=== PATIENT | female | born 1950 | race Caucasian/White ===

== ENCOUNTER 2018-09-06 13:13 | Inpatient (IN) | payer MEDICARE ==
[~2018-09-06] VITALS: Ht 167.6 cm; Wt 103.4 kg
[2018-09-06] MEDS ORDERED: CEphaleXIN 500 MG CAPSULE PO ONE (13:30)
[2018-09-06] MEDS ORDERED: CEphaleXIN 500 MG CAPSULE ONE (13:33)
[2018-09-06] MEDS ORDERED: ATOR20TA PO (13:40)
[2018-09-06] MEDS ORDERED: AMLO10TA7 PO (13:40)
[2018-09-06] MEDS ORDERED: LOSA100T31 PO (13:40)
[2018-09-06] MEDS ORDERED: BLOO-140 IN (13:40)
[2018-09-06] MEDS ORDERED: INSU100V7 SQ (13:40)
[2018-09-06] MEDS ORDERED: ALLO300T2 PO (13:40)
[2018-09-06] MEDS ORDERED: INSU100C SQ (13:40)
[2018-09-06] MEDS ORDERED: METO-358 PO (13:40)
[2018-09-06 13:45] LABS: BASOPHILS % (AUTO) 0.4 % (0.0-2.0); EOSINOPHILS # (AUTO) 0.3 K/uL (0.0-0.7); EOSINOPHILS % (AUTO) 2.9 % (0.0-7.0); HEMATOCRIT 42.8 % (31.2-41.9); HEMOGLOBIN 14.7 g/dL (10.9-14.3); LYMPHOCYTES # (AUTO) 2.5 K/uL (20.0-40.0); LYMPHOCYTES % (AUTO) 27.1 % (20.5-51.5); MEAN CORPUSCULAR HEMOGLOBIN 29.1 uug (24.7-32.8); MEAN CORPUSCULAR HGB CONC 34 g/dL (32.3-35.6); MEAN CORPUSCULAR VOLUME 84.8 fL (75.5-95.3); MONOCYTES # (AUTO) 0.6 K/uL (2.0-10.0); MONOCYTES % (AUTO) 6.8 % (0.0-11.0); NEUTROPHILS # (AUTO) 5.7 K/uL (1.8-8.9); NEUTROPHILS % (AUTO) 62.8 % (38.5-71.5); PLATELET COUNT (AUTO) 264 K/uL (179-408); RED BLOOD CELL COUNT(AUTO) 5.05 MIL/uL (3.63-4.92); WHITE BLOOD COUNT (AUTO) 9.1 K/uL (3.8-11.8)
[2018-09-06 13:50] LABS: CREATININE 0.6 mg/dL (0.6-1.3); POTASSIUM 3.3 mmol/L (3.5-5.1)
--- NOTE | 2018-09-06 14:10 | NUR ---
PT MEDICALLY CLEARED. MHU BED PENDING, SUGAR PLANTATION MANAGER AND MHU TEA ROOM MANAGER AWARE.
[2018-09-06] MEDS ORDERED: INSULIN REGULAR, HUMAN 300 UNIT/3 ML VIAL ONE (14:13)
[2018-09-06] MEDS ORDERED: POTASSIUM CHLORIDE 20 MEQ TAB.PRT.SR ONE (14:13)
[2018-09-06] MEDS ORDERED: POTASSIUM CHLORIDE 20 MEQ TAB.PRT.SR PO ONE (14:15)
[2018-09-06] MEDS ORDERED: INSULIN REGULAR, HUMAN 300 UNIT/3 ML VIAL SQ ONE (14:15)
--- NOTE | 2018-09-06 16:20 | NUR ---
PT TRANSFERED TO MHU IN STABLE CONDITION, PT REMAINED CALM AND COMFORTABLE THE WHOLE ER STAY. AT BEDSIDE THE WHOLE ER STAY.
[2018-09-06] MEDS ORDERED: ACETAMINOPHEN 325 MG TABLET PO PRN (17:00)
[2018-09-06] MEDS ORDERED: TEMAZEPAM 7.5 MG CAPSULE PO PRN (17:00)
[2018-09-06] MEDS ORDERED: MAGNESIUM HYDROXIDE 30 ML LIQUID UDC PO PRN (17:00)
[2018-09-06] MEDS ORDERED: MAG HYDROX/AL HYDROX/SIMETH 30 ML LIQUID UDC PO PRN (17:00)
[2018-09-06] MEDS ORDERED: CLONAZEPAM 0.5 MG TABLET PO PRN (17:00)
[2018-09-06] MEDS ORDERED: PNEUMOCOCCAL 23-VAL P-SAC VAC 0.5 ML VIAL IM ONE (17:45)
--- NOTE | 2018-09-06 18:44 | NUR ---
GPS: RECEIVED PATIENT FROM ER, ADMITTING TO [facility] UNIT UNDER THE SERVICE OF DR. DIAZ PATIENT IS ADMITTED ON 5150 GD DUE TO HALLUCINATION , REFUSING TO ALLOW TO PICK HER UP OFF THE BEDROOM FLOOR FOR SEVERAL DAYS, REFUSE TO EAT , REFUSING HER MEDICATION, AND WAS FOUND COVERED WITH HER FECES , PATIENT WAS ACCOMPANIED BY , PATIENT MALODOROUS AND UNKEMPT , ALERT ORIENTED X1, RECEIVED INSULIN FROM ER, PATIENT ASSESMENT HAS PERIANAL AND PERINEAL INFECTION, SKIN HAS SOME DISCOLORATION, AND TOENAILS DARKENED PATIENT COMFORTABLY ASSISTED TO HER ROOM, ORIENTED TO UNIT POLICY, THERE WERE NO VALUABLES UPON ADMISSION, PATIENT RECEIVED HER PATIENT HANDBOOK UPON ADMISSION, BP 138/70, T98.2R18 0/10 PAIN SCALE, 99% ROOM AIR, CALLED AND SPOKE WITH DR. DIAZ , WITH ORDERS MADE AND CARRIED OUT, ALL NEEDS MET AT THIS TIME WILL CONTINUE MONITOR
[2018-09-06] MEDS ORDERED: DEXTROSE 50% 50 ML DISP.SYRIN IV PRN (20:00)
[2018-09-06 20:22] VITALS: BP 135/85
[2018-09-06] MEDS: LOSARTAN POTASSIUM 50 MG TABLET PO SCH (20:44)
[2018-09-06] MEDS: CEphaleXIN 500 MG CAPSULE PO SCH (20:44)
[2018-09-06] MEDS: ATORVASTATIN 20 MG TABLET PO SCH (20:44)
[2018-09-06] MEDS: INSULIN REGULAR, HUMAN 300 UNIT/3 ML VIAL SQ PRN (21:00)
[2018-09-06] MEDS: BLOOD SUGAR DIAGNOSTIC 1 EACH STRIP VI SCH (21:28)
[2018-09-06] MEDS: INSULIN GLARGINE,HUM 300 UNITS/3 ML CARTRIDGE SQ SCH (21:32)
--- NOTE | 2018-09-07 04:06 | NUR ---
received patient in bed upon initial rounds. patient lethargic but easily arousable. compliant with meds. took meds without difficulty. Accuck @ 2100 was 272. 6 units of humulog R given as coverage. no acute distress noted. Lantus insulin given as ordered. patient compliant with meds. VSS.Incontinent of urine. kept clean and dry. fall precautions maintained.
[2018-09-07] MEDS: BLOOD SUGAR DIAGNOSTIC 1 EACH STRIP VI SCH ×4 (06:32→21:04)
[2018-09-07 07:30] VITALS: BP 131/91
[2018-09-07] MEDS: CEphaleXIN 500 MG CAPSULE PO SCH ×2 (08:14→16:23)
[2018-09-07] MEDS: METOPROLOL SUCCINATE XL 50 MG TAB.SR.24H PO SCH (08:15)
[2018-09-07] MEDS: LOSARTAN POTASSIUM 50 MG TABLET PO SCH (08:16)
[2018-09-07] MEDS: AMLODIPINE 10 MG TABLET PO SCH (08:16)
[2018-09-07] MEDS: ALLOPURINOL 300 MG TABLET PO SCH (08:19)
[2018-09-07] MEDS: INSULIN REGULAR, HUMAN 300 UNIT/3 ML VIAL SQ PRN ×3 (12:23→21:10)
[2018-09-07] MEDS ORDERED: Z GUARD REMEDY PASTE 57 GM TUBE TOP PRN (13:15)
--- NOTE | 2018-09-07 13:18 | NUR ---
WOUND CARE CONSULT: PT PRESENTS WITH INCONTINENCE AND RED RASH TO PERINEUM, BUTTOCKS AND ABDOMINAL FOLDS, PRESENT ON ADMISSION. SLIGHT REDNESS TO LOWER LEGS NOTED. RECOMMENDATIONS MADE FOR SKIN PROTECTION AND CARE. DISCUSSED WITH NURSING STAFF. WILL SEE PRN. MAGAÑA IN AGREEMENT WITH PLAN OF CARE. Addendum: 09/07/18 at 1319 by DENILSON MEYERS RN Amended: Links added.
[2018-09-07 16:00] VITALS: BP 159/91
[2018-09-07] MEDS: CLOTRIMAZOLE 1% CREAM 30 GM TUBE TOP SCH (16:23)
--- NOTE | 2018-09-07 18:19 | NUR ---
GPS:RECEIVED PATIENT ALERT ORIENTED X2, PATIENT COMPLIANT WITH MEDICATION DENIES SUICIDAL AND HOMICIDAL IDEATION, PATIENT HAD GOOD APPETITE, PATIENT CONFUSED, NEEDS REDIRECTION, DENIES PAIN WITH 0/10 PAIN SCALE, PATIENT KEPT CLEAN AND DRY, INSULIN GIVEN PER SLIDING SCALE, WILL CONTINUE MONITOR
[2018-09-07 20:00] VITALS: BP 157/92
[2018-09-07] MEDS: ATORVASTATIN 20 MG TABLET PO SCH (20:44)
[2018-09-07] MEDS: risperiDONE 0.25 MG TABLET PO SCH (20:45)
[2018-09-07] MEDS: INSULIN GLARGINE,HUM 300 UNITS/3 ML CARTRIDGE SQ SCH (21:07)
[2018-09-07] MEDS: Z GUARD REMEDY PASTE 57 GM TUBE TOP SCH (21:20)
[2018-09-08] MEDS: BLOOD SUGAR DIAGNOSTIC 1 EACH STRIP VI SCH ×4 (06:45→21:06)
[2018-09-08 07:30] VITALS: BP 213/111
[2018-09-08] MEDS: LOSARTAN POTASSIUM 50 MG TABLET PO SCH (08:14)
[2018-09-08] MEDS: METOPROLOL SUCCINATE XL 50 MG TAB.SR.24H PO SCH (08:15)
[2018-09-08] MEDS: AMLODIPINE 10 MG TABLET PO SCH (08:16)
[2018-09-08] MEDS: ALLOPURINOL 300 MG TABLET PO SCH (08:59)
[2018-09-08] MEDS: CEphaleXIN 500 MG CAPSULE PO SCH ×2 (08:59→16:45)
[2018-09-08] MEDS: CLOTRIMAZOLE 1% CREAM 30 GM TUBE TOP SCH ×2 (09:00→17:14)
[2018-09-08] MEDS: Z GUARD REMEDY PASTE 57 GM TUBE TOP SCH ×2 (09:00→20:48)
[2018-09-08] MEDS: INSULIN REGULAR, HUMAN 300 UNIT/3 ML VIAL SQ PRN ×4 (10:30→21:09)
[2018-09-08] MEDS: HYDROCHLOROTHIAZIDE 25 MG TABLET PO SCH (13:31)
[2018-09-08 16:00] VITALS: BP 129/68
[2018-09-08 20:00] VITALS: BP 174/94
[2018-09-08] MEDS: risperiDONE 0.25 MG TABLET PO SCH ×3 (20:46→21:00)
[2018-09-08] MEDS: ATORVASTATIN 20 MG TABLET PO SCH ×3 (20:46→21:00)
[2018-09-08] MEDS: INSULIN GLARGINE,HUM 300 UNITS/3 ML CARTRIDGE SQ SCH (21:11)
[2018-09-09] MEDS: BLOOD SUGAR DIAGNOSTIC 1 EACH STRIP VI SCH ×4 (05:54→20:04)
--- NOTE | 2018-09-09 06:11 | NUR ---
pt. slept for 6 hrs. hs care done lotrimin cream & z-guard cream applied to perianal area & groin. am care done . z-guard cream applied to perianal area.had emesis of yellowish in color approximately 50cc., stated she feels better after the emesis. checked blood sugar by accucheck bs-[id number]. not in any distress.
[2018-09-09] MEDS: INSULIN REGULAR, HUMAN 300 UNIT/3 ML VIAL SQ PRN ×3 (07:50→20:09)
[2018-09-09 08:00] VITALS: BP 117/48
[2018-09-09] MEDS: LOSARTAN POTASSIUM 50 MG TABLET PO SCH (08:56)
[2018-09-09] MEDS: METOPROLOL SUCCINATE XL 50 MG TAB.SR.24H PO SCH (08:57)
[2018-09-09] MEDS: CEphaleXIN 500 MG CAPSULE PO SCH ×2 (08:57→17:16)
[2018-09-09] MEDS: ALLOPURINOL 300 MG TABLET PO SCH (08:57)
[2018-09-09] MEDS: HYDROCHLOROTHIAZIDE 25 MG TABLET PO SCH (08:57)
[2018-09-09] MEDS: AMLODIPINE 10 MG TABLET PO SCH (08:58)
[2018-09-09] MEDS: CLOTRIMAZOLE 1% CREAM 30 GM TUBE TOP SCH ×2 (08:58→16:36)
[2018-09-09] MEDS: risperiDONE 0.25 MG TABLET PO SCH ×2 (08:58→20:05)
[2018-09-09] MEDS: Z GUARD REMEDY PASTE 57 GM TUBE TOP SCH ×2 (08:59→20:05)
--- NOTE | 2018-09-09 13:00 | NUR ---
Initial Discharge Plan: Patient is a 67 year old female who currently resides at home [[address] [place] [id number]] with her , Db Curtis [[phone]]. Per Db, he would like patient to go to a retirement facility for short-term placement. structural steel worker helper agreeable with placement and will assist patient and Db in finding appropriate placement. structural steel worker helper will continue to collaborate with patient, patient , and MD on a safe and proper discharge.
--- NOTE | 2018-09-09 15:45 | NUR ---
Gps/Lead Software Tester- Incontinent of large amount of urine, good augustin care was rendered, lotrimin cream applied to abdominal fold redness, z-guard to sacrococcygeal area, repositioned , pressure relief, per Wound care Nurse she had already seen skin issues .Continue with skin care regimen as ordered.
[2018-09-09 16:00] VITALS: BP 174/100
[2018-09-09] MEDS: ONDANSETRON HCL 4 MG TABLET PO PRN (17:16)
[2018-09-09] MEDS: ATORVASTATIN 20 MG TABLET PO SCH (20:04)
[2018-09-09] MEDS: INSULIN GLARGINE,HUM 300 UNITS/3 ML CARTRIDGE SQ SCH (20:10)
[2018-09-09 20:47] VITALS: BP 163/83
[2018-09-10] MEDS: BLOOD SUGAR DIAGNOSTIC 1 EACH STRIP VI SCH ×4 (06:41→20:07)
[2018-09-10 07:30] VITALS: BP 145/90
[2018-09-10] MEDS: LOSARTAN POTASSIUM 50 MG TABLET PO SCH (08:29)
[2018-09-10] MEDS: AMLODIPINE 10 MG TABLET PO SCH (08:29)
[2018-09-10] MEDS: risperiDONE 0.25 MG TABLET PO SCH ×2 (08:29→20:07)
[2018-09-10] MEDS: ALLOPURINOL 300 MG TABLET PO SCH (08:30)
[2018-09-10] MEDS: METOPROLOL SUCCINATE XL 50 MG TAB.SR.24H PO SCH (08:30)
[2018-09-10] MEDS: CEphaleXIN 500 MG CAPSULE PO SCH ×2 (08:30→16:54)
[2018-09-10] MEDS: CLOTRIMAZOLE 1% CREAM 30 GM TUBE TOP SCH ×2 (08:31→16:55)
[2018-09-10] MEDS: HYDROCHLOROTHIAZIDE 25 MG TABLET PO SCH (08:31)
[2018-09-10] MEDS: Z GUARD REMEDY PASTE 57 GM TUBE TOP SCH ×2 (08:31→20:07)
[2018-09-10] MEDS: INSULIN REGULAR, HUMAN 300 UNIT/3 ML VIAL SQ PRN (12:03)
[2018-09-10 15:35] VITALS: BP 111/73
--- NOTE | 2018-09-10 17:00 | NUR ---
Gps/Hat Binder- in to visit, informations provided regarding pt. progress. Remains in bed most of the morning, repositioned at a regular intervals, bladder incontinence, good augustin-care rendered, cream applied to affected areas .Needed assist with her meals, no initiating to feed self.
[2018-09-10 19:55] VITALS: BP 106/35
[2018-09-10] MEDS: INSULIN GLARGINE,HUM 300 UNITS/3 ML CARTRIDGE SQ SCH (20:01)
[2018-09-10] MEDS: ATORVASTATIN 20 MG TABLET PO SCH (20:07)
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
[2018-09-11] MEDS: BLOOD SUGAR DIAGNOSTIC 1 EACH STRIP VI SCH ×4 (06:46→20:13)
[2018-09-11 07:30] VITALS: BP 121/73
[2018-09-11] MEDS: CEphaleXIN 500 MG CAPSULE PO SCH ×2 (08:41→17:13)
[2018-09-11] MEDS: risperiDONE 0.25 MG TABLET PO SCH ×2 (08:41→20:05)
[2018-09-11] MEDS: METOPROLOL SUCCINATE XL 50 MG TAB.SR.24H PO SCH (08:42)
[2018-09-11] MEDS: ALLOPURINOL 300 MG TABLET PO SCH (08:42)
[2018-09-11] MEDS: HYDROCHLOROTHIAZIDE 25 MG TABLET PO SCH (08:43)
[2018-09-11] MEDS: AMLODIPINE 10 MG TABLET PO SCH (08:43)
[2018-09-11] MEDS: LOSARTAN POTASSIUM 50 MG TABLET PO SCH (08:43)
[2018-09-11] MEDS: Z GUARD REMEDY PASTE 57 GM TUBE TOP SCH ×2 (08:44→20:13)
[2018-09-11] MEDS: CLOTRIMAZOLE 1% CREAM 30 GM TUBE TOP SCH ×2 (08:45→17:13)
--- NOTE | 2018-09-11 09:39 | NUR ---
Gps/Manager Mass- Assisted with her breakfast, was fed, ate fairly well, adequate fluid intake,. Patient not initiating to feed self, needed encouragement and prompting. Routine am meds. was administered crushed with apple sauce, pt.was spitting out meds .
[2018-09-11] MEDS: INSULIN REGULAR, HUMAN 300 UNIT/3 ML VIAL SQ PRN ×3 (12:23→20:12)
[2018-09-11 16:00] VITALS: BP 107/71
[2018-09-11] MEDS: ATORVASTATIN 20 MG TABLET PO SCH (20:05)
[2018-09-11] MEDS: INSULIN GLARGINE,HUM 300 UNITS/3 ML CARTRIDGE SQ SCH (20:11)
[2018-09-11 20:37] VITALS: BP 126/71
[2018-09-12] MEDS: BLOOD SUGAR DIAGNOSTIC 1 EACH STRIP VI SCH ×4 (06:30→20:59)
[2018-09-12 07:30] VITALS: BP 116/53
[2018-09-12] MEDS: LOSARTAN POTASSIUM 50 MG TABLET PO SCH (08:13)
[2018-09-12] MEDS: risperiDONE 0.25 MG TABLET PO SCH ×2 (08:13→16:27)
[2018-09-12] MEDS: METOPROLOL SUCCINATE XL 50 MG TAB.SR.24H PO SCH (08:14)
[2018-09-12] MEDS: Z GUARD REMEDY PASTE 57 GM TUBE TOP SCH ×2 (08:15→20:51)
[2018-09-12] MEDS: CLOTRIMAZOLE 1% CREAM 30 GM TUBE TOP SCH ×2 (08:15→16:28)
[2018-09-12] MEDS: ALLOPURINOL 300 MG TABLET PO SCH (08:17)
[2018-09-12] MEDS: HYDROCHLOROTHIAZIDE 25 MG TABLET PO SCH (08:21)
[2018-09-12] MEDS: AMLODIPINE 10 MG TABLET PO SCH (08:21)
--- NOTE | 2018-09-12 14:08 | NUR ---
Discharge planning: general warehouse worker faxed patient clinical information to [facility] [[address] [facility], [place] [address]; ] for admission review. general warehouse worker awaiting response from admissions department. Addendum: 09/12/18 at 1606 by ROSETTA HINDS general warehouse worker received return call from admissions hr business partnerCrys thibodeaux, stating that patient has been accepted to facility. general warehouse worker will follow-up with family.
[2018-09-12 16:00] VITALS: BP 109/66
[2018-09-12] MEDS: INSULIN REGULAR, HUMAN 300 UNIT/3 ML VIAL SQ PRN ×2 (16:23→21:11)
--- NOTE | 2018-09-12 20:33 | NUR ---
APS BUSINESS INVESTOR,MISS LOMELI CAME TO INTERVIEW PATIENT.SHE LEFT HER BUSINESS CARD WHICH PLACED IN FRONT OF THE CHART FOR S/W TO FOLLOW UP
[2018-09-12 20:34] VITALS: BP 123/72
[2018-09-12] MEDS: ATORVASTATIN 20 MG TABLET PO SCH (20:51)
[2018-09-12] MEDS: INSULIN GLARGINE,HUM 300 UNITS/3 ML CARTRIDGE SQ SCH (21:01)
--- NOTE | 2018-09-12 21:38 | NUR ---
Patient received in bed awake. Patient complaint with medication. HS BS 139, 2 units regular coverage per sliding scale, 50 units Lantus administered per MD order. Offered patient a snack given and consumed 100%Patient denies pain at this time. Patient has Z-guard applied to groin and sacral areas, Lotrimin applied to abd folds. Patient denies pain at this time, will continue to monitor. Patient responds to internal stimuli will continue to monitor. Bed in lowest position, bed locked, and bed alarm on while in bed.
[2018-09-13] MEDS: BLOOD SUGAR DIAGNOSTIC 1 EACH STRIP VI SCH ×4 (06:40→20:29)
[2018-09-13] MEDS: LOSARTAN POTASSIUM 50 MG TABLET PO SCH (08:31)
[2018-09-13] MEDS: risperiDONE 0.25 MG TABLET PO SCH ×3 (08:32→17:04)
[2018-09-13] MEDS: METOPROLOL SUCCINATE XL 50 MG TAB.SR.24H PO SCH (08:32)
[2018-09-13] MEDS: AMLODIPINE 10 MG TABLET PO SCH (08:32)
[2018-09-13] MEDS: ALLOPURINOL 300 MG TABLET PO SCH (08:33)
[2018-09-13] MEDS: CLOTRIMAZOLE 1% CREAM 30 GM TUBE TOP SCH ×2 (08:34→17:04)
[2018-09-13] MEDS: HYDROCHLOROTHIAZIDE 25 MG TABLET PO SCH (08:34)
[2018-09-13] MEDS: Z GUARD REMEDY PASTE 57 GM TUBE TOP SCH ×2 (08:35→20:21)
[2018-09-13 10:27] VITALS: BP 138/88
[2018-09-13 15:57] VITALS: BP 100/54
[2018-09-13] MEDS: ATORVASTATIN 20 MG TABLET PO SCH (20:20)
[2018-09-13 20:43] VITALS: BP 136/81
[2018-09-13] MEDS: INSULIN GLARGINE,HUM 300 UNITS/3 ML CARTRIDGE SQ SCH (20:54)
[2018-09-14] MEDS: BLOOD SUGAR DIAGNOSTIC 1 EACH STRIP VI SCH ×4 (06:35→20:49)
[2018-09-14 07:30] VITALS: BP 126/72
[2018-09-14] MEDS: risperiDONE 0.25 MG TABLET PO SCH ×3 (08:26→17:32)
[2018-09-14] MEDS: AMLODIPINE 10 MG TABLET PO SCH (08:27)
[2018-09-14] MEDS: LOSARTAN POTASSIUM 50 MG TABLET PO SCH (08:28)
[2018-09-14] MEDS: METOPROLOL SUCCINATE XL 50 MG TAB.SR.24H PO SCH (08:28)
[2018-09-14] MEDS: HYDROCHLOROTHIAZIDE 25 MG TABLET PO SCH (08:29)
[2018-09-14] MEDS: ALLOPURINOL 300 MG TABLET PO SCH (08:29)
[2018-09-14] MEDS: CLOTRIMAZOLE 1% CREAM 30 GM TUBE TOP SCH ×5 (08:31→17:40)
[2018-09-14] MEDS: Z GUARD REMEDY PASTE 57 GM TUBE TOP SCH ×2 (08:31→20:50)
[2018-09-14] MEDS: ONDANSETRON HCL 4 MG TABLET PO PRN (09:01)
--- NOTE | 2018-09-14 11:30 | NUR ---
NOTED PATIENT BACK WITH RENDESS, HOT TO TOUCH, AND WITH WHITE PATCHES, WOUND CONSULT PLACED, SPOKE TO HIPA FROM WOUND CONSULT CARE TO SEE THE PATIENT.
--- NOTE | 2018-09-14 12:00 | NUR ---
FIREARMS REPORT: red cross worker completed and submitted a [employer] firearms report for a 5250 GD certification. A copy of report has been placed in patient chart.
--- NOTE | 2018-09-14 12:24 | NUR ---
WOUND CARE CONSULT: PT REFUSED TO BE TURNED FOR FULL SKIN ASSESSMENT OF BUTTOCKS BUT ALLOWED ASSESSMENT OF BACK BY LEANING FORWARD. RECOMMENDATIONS MADE FOR CARE OF RED PEELING RASH ON BACK, ESPECIALLY RT SIDE. DISCUSSED WITH NURSING STAFF. FIRST STEP LOW AIRLOSS MATTRESS ON ORDER. CURRENT TYRONE SCORE IS 11. WILL SEE PRHusam MAGAÑA IN AGREEMENT WITH PLAN OF CARE.
[2018-09-14] MEDS: INSULIN REGULAR, HUMAN 300 UNIT/3 ML VIAL SQ PRN ×3 (12:50→20:57)
[2018-09-14] MEDS ORDERED: CLOTRIMAZOLE/BETAMET DIPROP CREAM 15 GM TUBE TOP SCH (13:00)
--- NOTE | 2018-09-14 13:07 | NUR ---
DATA CONTROL CLERK SUPERVISOR Dmittriy regarding patient's fungal infection on her right upper back, with order to apply lotrimin cream, order noted
--- NOTE | 2018-09-14 15:29 | NUR ---
WOUND CARE: PT AGREED TO TURN FOR SKIN ASSESSMENT OF BUTTOCKS AND NOTED TO HAVE INCONTINENCE ASSOCIATED SKIN DAMAGE TO GLUTEAL CREASE/INNER BUTTOCKS. RASH TO BUTTOCKS IMPROVING. PT ON FIRST STEP [facility]. SKIN PROTECTION RECOMMENDATIONS DISCUSSED WITH NURSING STAFF. WILL SEE PRN. Addendum: 09/14/18 at 1530 by DENILSON MEYERS RN Amended: Links added.
[2018-09-14 16:00] VITALS: BP 92/47
--- NOTE | 2018-09-14 18:40 | NUR ---
NO ACUTE DISTRESS NOTED, COMPLIANT WITH MEDS AND TREATMENTS, CONTINUE WITH TX TO FUNGAL INFECTION AT BACK.
[2018-09-14 20:24] VITALS: BP 107/58
[2018-09-14] MEDS: ATORVASTATIN 20 MG TABLET PO SCH (20:49)
[2018-09-14] MEDS: INSULIN GLARGINE,HUM 300 UNITS/3 ML CARTRIDGE SQ SCH (20:58)
[2018-09-15] MEDS: BLOOD SUGAR DIAGNOSTIC 1 EACH STRIP VI SCH ×2 (06:53→11:47)
[2018-09-15 07:30] VITALS: BP 128/65
--- NOTE | 2018-09-15 08:29 | NUR ---
Discharge Note: Patient will be discharged to [facility] [[address] [facility], [place] [address]; ] and transportation will be provided by ambulance at 1:00pm. Please arrange ambulance transportation for this patien. Acceptance to facility was received by nelly Spangler hammer operator, who states they are ready to accept the patient today. Patient is A&Ox2, denies suicidal ideation, is able to plan for self-care, and is agreeable with discharge plan. Sprayer Leather has called and spoken with patient's , Db Curtis [[phone]], and he is aware and agreeable with discharge plan. Patient will be followed by Dr. Menezes (Licensing Specialist) and Dr. Poole (psychiatrist) at the facility. Patient has also been provided with mental health resources including [facility] Crisis Line [ ]; [facility] Al[facility] [ ], and the National Suicide Prevention Lifeline [ ].
[2018-09-15] MEDS: LOSARTAN POTASSIUM 50 MG TABLET PO SCH (09:04)
[2018-09-15] MEDS: METOPROLOL SUCCINATE XL 50 MG TAB.SR.24H PO SCH (09:05)
[2018-09-15] MEDS: AMLODIPINE 10 MG TABLET PO SCH (09:05)
[2018-09-15 09:06] VITALS: BP 128/65
[2018-09-15] MEDS: ALLOPURINOL 300 MG TABLET PO SCH (09:06)
[2018-09-15] MEDS: HYDROCHLOROTHIAZIDE 25 MG TABLET PO SCH (09:06)
[2018-09-15] MEDS: CLOTRIMAZOLE 1% CREAM 30 GM TUBE TOP SCH (09:07)
[2018-09-15] MEDS: risperiDONE 0.25 MG TABLET PO SCH ×2 (09:07→13:40)
[2018-09-15] MEDS: Z GUARD REMEDY PASTE 57 GM TUBE TOP SCH (09:07)
--- NOTE | 2018-09-15 15:49 | NUR ---
Pt received this morning in bed, assessed, AOx1, denies pain, SI/HI and able to CFS. Pt compliant with routine medication administration taking pills one at a time. Discharge orders received. Personal belongings accounted for and list signed. Skin integrity photos taken and placed in chart of fungal rash redness to 3 locations. Report called in to Debra SPUALDING at [facility]. VSS. ID band removed. Resources supplied. Report given to director of academic. Pt clean, dry, safely transferred to [facility], and escorted out of hospital to ambulance. Will remove Pt from system promptly.
== END 2018-09-15 15:30 | DRG 885 ==
LOC: ER 13:13 → GPS 16:16
PROVIDERS: ADMIT Psychiatry & Neurology Psychiatry
PROC: 0HBRXZZ Excision of Toe Nail, External Approach (ICD-10-PCS; principal; 2018-09-12)
DX: F29 Unspecified psychosis not due to a substance or known physiological condition (principal); E11.65 Type 2 diabetes mellitus with hyperglycemia; N39.0 Urinary tract infection, site not specified; E87.6 Hypokalemia; E78.5 Hyperlipidemia, unspecified; Z74.9 Problem related to care provider dependency, unspecified; Z79.899 Other long term (current) drug therapy; E66.9 Obesity, unspecified; Z68.36 Body mass index [BMI] 36.0-36.9, adult; E11.42 Type 2 diabetes mellitus with diabetic polyneuropathy; B35.1 Tinea unguium; M10.9 Gout, unspecified; I10 Essential (primary) hypertension; Z91.81 History of falling; Z79.4 Long term (current) use of insulin; R11.10 Vomiting, unspecified
CPT/HCPCS: 36415; 85025; 90732; 97110; 97112; 97116; 97530; A4663; J1815; Q0162